=== PATIENT | male | born 1980 | race Caucasian/White ===

== ENCOUNTER 2023-01-12 07:43 | Emergency (ER) | payer BC, SELFPAY ==
[2023-01-12 07:44] VITALS: BP 146/94; PULSE 97; RESP 16; TEMP 36.7; O2SAT 95; BMI 20.9
--- NOTE | 2023-01-12 08:01 | PC.NURSE ---
MONICA GRANADOS at
--- NOTE | 2023-01-12 08:08 | HMH.EDEXTP ---
Discharge Plan Disposition Patient Disposition: Home, Self-Care Condition: Good Prescriptions Prescriptions: New clindamycin HCl [Cleocin HCl] 300 mg capsule 300 mg PO TID 10 Days Qty: 30 0RF Clinical Impressions Clinical Impression: Cellulitis of hand Instructions Patient Instructions: Cellulitis Discharge ED Provider: Jessica Villalobos Extremity Problem HPI General Stated complaint: sore on right hand Time Seen by Provider: 01/12/23 07:50 Mode of Arrival: Ambulatory Source of Information: Patient Limitations: No Limitations History of Present Illness HPI Narrative: Patient is a 42-year-old male who is here secondary to right hand redness and swelling and discomfort. Patient stated that he got bit by something and he has some redness and top of the right hand. Patient is has pain and swelling on the top of the hand. Patient has good sensory intact patient has no fevers or chills. He is able to hold onto things and not dropping things. MD Complaint: extremity pain and extremity swelling Consistency: constant Location: right and upper extremity Severity scale (1-10): 5 Quality: aching, dull and constant Radiation: none Relieving factors: nothing Exacerbating factors: range of motion and palpation Associated symptoms: myalgias and arthralgias Related Data Previous Rx's Medication Instructions Recorded clindamycin HCl 300 mg capsule 300 mg PO TID 10 days #30 caps 01/12/23 (Cleocin HCl) Allergies Allergy/AdvReac Type Severity Reaction Status Date / Time No Known Allergies Allergy Verified 01/12/23 08:06 [facility] Disclaimer: The information contained in this section may have been updated after the patient was seen, as this information can be updated by other users. Social History Smoking Status: Current every day smoker alcohol intake: never current occupational status: employed Travel in the last 8 weeks: Inside the [place] ROS Obtained: Yes All systems reviewed & no additional complaints except as documented Musculoskeletal Musculoskeletal: Reports other (right hand swelling and redness) Physical Exam General General appearance: alert and in no apparent distress Head Head exam: atraumatic, normocephalic and normal inspection Eye Eye exam: Present normal appearance, PERRL and EOMI ENT ENT exam: Present normal exam and normal oropharynx Neck Neck exam: Present normal inspection, full ROM and trachea midline Chest Chest inspection: Present normal inspection and symmetric chest wall rise Respiratory Respiratory exam: Present normal lung sounds bilaterally Cardiovascular Cardiovascular exam: Present regular rate, normal rhythm, normal heart sounds, +S1 and +S2 Abdominal Exam Abdominal exam: Present soft and normal bowel sounds; Absent distention, tenderness, guarding, rebound or rigidity Extremities Exam Extremities exam: Present tenderness (right hand dorsal aspect erythema, swelling and tenderness, normal rom, no abscess) Back Exam Back exam: Present normal inspection and full ROM Neurological Exam Neurological exam: Present oriented X3 Psychiatric Psychiatric exam: Present normal affect and normal mood Skin Skin exam: Present warm, dry, intact and normal color Medical Decision Making Jerry Inquiry Pt receiving controlled substance: No Medical Decision Narrative: Patient is a 42-year-old male who said that he got bit by something on the top of his right hand there is some swelling and redness in that area. No difficulty grabbing and hold onto things. Patient has no fluctuant abscess. No streaking going up to the wrist or forearm. No signs of lymphangitis. Patient is given clindamycin orally and discharged home to follow-up as an outpatient. Critical Care Time Critical Care Time Critical Care Time: No Attestation: On , the high probability of a clinically significant, sudden or life thre
[2023-01-12 08:18] VITALS: BP 138/84; PULSE 98; RESP 16; TEMP 36.7; O2SAT 96
== END 2023-01-12 08:18 | disposition home or self-care (01) ==
LOC: ER 08:14
PROVIDERS: Emergency Provider Emergency Medicine
DX: L03.113 Cellulitis of right upper limb (principal); F17.200 Nicotine dependence, unspecified, uncomplicated
CPT/HCPCS: 99283; 99284

== ENCOUNTER 2024-02-23 15:13 | Emergency (ER) | payer BC, SELFPAY ==
[2024-02-23 15:15] VITALS: BP 130/62; PULSE 98; RESP 17; TEMP 36.9; O2SAT 95; BMI 23.1
--- NOTE | 2024-02-23 15:22 | ED_ITS ---
Discharge Plan Disposition Patient Disposition: Home, Self-Care Condition: Good Prescriptions Prescriptions: New sulfamethoxazole-trimethoprim [Bactrim DS] 800-160 mg tablet 1 tab PO BID 10 Days Qty: 20 0RF No Action clindamycin HCl [Cleocin HCl] 300 mg capsule 300 mg PO TID 10 Days Qty: 30 0RF Referrals Follow up/Referrals: Provider,Referral, MD [Primary Care Provider] - See instructions Activity Restrictions/Add. Instructions Additional Instructions/Restrictions: Please take all antibiotics as prescribed. Please call make a follow-up appointment with your urologist tomorrow. Return to the ER as needed for any worsening signs or symptoms. You have a diarrheal panel pending but we will likely not have results for several hours. Please call to check in the morning or keep updated with your portal Clinical Impressions Clinical Impression: Complicated urinary tract infection Diarrhea Qualifiers: Diarrhea type: presumed infectious Qualified Code(s): R19.7 - Diarrhea, unspecified Discharge ED Provider: Garrison Guerra General Adult HPI <KATY Green - Last Filed: 02/23/24 16:33> General Chief complaint: Urogenital-Female Stated complaint: sent by phy- UTI Time Seen by Provider: 02/23/24 15:16 History of Present Illness HPI narrative: Patient presents for evaluation of possible urinary tract infection. Patient has a history of back trauma several months ago and as a result developed developed a neurogenic bladder for which he had a indwelling Hassan catheter placed along with a leg bag 2 weeks ago prior to discharge from [facility]. Patient also went to his Suboxone clinic today and had a drug test which they reportedly saw blood and possible infection and so they sent him to the emergency department for evaluation. Patient denies chest pain fever chills hemoptysis hematochezia melena vomiting or diarrhea or dysuria but does endorse some nausea. Related Data Previous Rx's Medication Instructions Recorded clindamycin HCl 300 mg capsule 300 mg PO TID 10 days #30 caps 01/12/23 (Cleocin HCl) sulfamethoxazole 800 1 tab PO BID 10 days #20 tabs 02/23/24 mg-trimethoprim 160 mg tablet (Bactrim DS) Allergies Allergy/AdvReac Type Severity Reaction Status Date / Time No Known Allergies Allergy Verified 01/12/23 08:06 PFSH <KATY Green - Last Filed: 02/23/24 16:33> [facility] Disclaimer: The information contained in this section may have been updated after the patient was seen, as this information can be updated by other users. Social History (Updated 01/12/23 @ 08:12 by Jessica Villalobos MD) Smoking Status: Former smoker alcohol intake: never current occupational status: employed Travel in the last 8 weeks: Inside the [place] <KATY Green - Last Filed: 02/23/24 16:33> ROS Obtained: Yes Systems reviewed as appropriate & no additional complaints except as documented Physical Exam <KATY Green - Last Filed: 02/23/24 16:33> General General appearance: alert and in no apparent distress Head Head exam: atraumatic and normal inspection Eye Eye exam: Present normal appearance, PERRL and EOMI ENT ENT exam: Present normal exam, normal oropharynx and mucous membranes moist Neck Neck exam: Present normal inspection, full ROM and trachea midline; Absent lymphadenopathy Chest Chest inspection: Present normal inspection and symmetric chest wall rise Respiratory Respiratory exam: Present normal lung sounds bilaterally; Absent accessory muscle use Cardiovascular Cardiovascular exam: Present regular rate, normal rhythm, normal heart sounds, +S1 and +S2 Abdominal Exam Abdominal exam: Present soft and normal bowel sounds; Absent tenderness, guarding or rebound Extremities Exam Extremities exam: Present normal inspection and full ROM Neurological Exam Neurological exam: Present alert, oriented X3 and CN II-XII intact Psychiatric Psychiatric exam: Present normal affect and normal mood Skin Skin exam: Present warm, dry and normal color Lymphatic Lymphatic Findings: no adenopathy Medical Decision Making <KATY Green - Last Filed: 02/23/24 16:33> Medical Records Medical records reviewed: Yes I reviewed the patient's medical records. Jerry Inquiry Pt receiving controlled substance: No Vital Signs: 02/23/24 15:15 02/23/24 16:00 02/23/24 16:39 Temperature 98.5 F Temperature Source Oral Pulse Rate 87 80 Pulse Rate [Left Radial] 98 H Respiratory Rate 17 Blood Pressure 128/76 150/65 H Blood Pressure [Right Arm] 130/62 Blood Pressure Mean [Right Arm] 84 Blood Pressure Source Blood Pressure Source [Right Arm] Automatic Cuff Blood Pressure Position Blood Pressure Position [Right Arm] Sitting 02 Sat by Pulse Oximetry 95 97 95 Oxygen Delivery Method Room Air 05/28/24 17:05 Temperature 98.1 F Temperature Source Oral Pulse Rate 80 Pulse Rate [Left Radial] Respiratory Rate 18 Blood Pressure 150/65 H Blood Pressure [Right Arm] Blood Pressure Mean [Right Arm] Blood Pressure Source Automatic Cuff Blood Pressure Source [Right Arm] Blood Pressure Position Sitting Blood Pressure Position [Right Arm] 02 Sat by Pulse Oximetry Oxygen Delivery Method Room Air Lab Data Lab results reviewed: Yes I reviewed the patient's lab results. Lab Results 02/23/24 15:40: WBC 10.1, RBC 4.44 L, Hgb 13.0 L, Hct 40.9 L, MCV 92.2, MCH 29.2, MCHC 31.7 L, RDW 14.2, Plt Count 334, MPV 7.3 L, Neut % (Auto) 85.2 H, L ymph % (Auto) 9.1 L, [place] % (Auto) 4.4, Eos % (Auto) 0.8, Baso % (Auto) 0.4, N eut # (Auto) 8.6 H, Lymph # (Auto) 0.9, [place] # (Auto) 0.5, Eos # (Auto) 0.1, Baso # (Auto) 0.0, Total Counted 100, Neutrophils % (Manual) 84 H, Lymphocytes % (Manual) 12, Monocytes % (Manual) 3, Eosinophils % (Manual) 1, Platelet Estimate Normal, Hypochromasia 1+, Microcytosis 1+, Sodium 140, Potassium 4.4, Chloride 103, Carbon Dioxide 28, Anion Gap 13.4, BUN 14, Creatinine 0.80, Estimated Creat Clear 134, Estimated GFR 106, Est GFR ( Amer) 128, Glucose 111 H, Calcium 10.0, Total Bilirubin 0.6, Direct Bilirubin 0.2, AST 29, ALT 27, Alkaline Phosphatase 116, Total Creatine Kinase 117, Total Protein 7.9, Albumin 4.4, G lobulin 3.5 H, Albumin/Globulin Ratio 1.3, Urine Color Dark yellow, Urine Appearance Cloudy, Urine pH 6.0, Ur Specific [place] >= 1.030, Urine Protein 2+, Urine Glucose (UA) Negative, Urine Ketones Trace, Urine Blood 3+, Urine Nitrate Positive, Urine Bilirubin Negative, Urine Urobilinogen 1.0, Ur Leukocyte Esterase 2+ A, Urine RBC 10-20, Urine WBC 20-50, Ur Squamous Epith Cells None, Urine Bacteria 2+ 02/23/24 15:40 02/23/24 15:40 Orders (Tests/Meds): ED MEDICATIONS Discontinued Medications Generic Name Dose Route Start Last Admin Trade Name Sydnee PRN Reason Stop Dose Admin Acetaminophen 1,000 mg 02/23/24 15:27 02/23/24 15:58 Acetaminophen 1,000mg/100ml Vial IV 02/23/24 15:28 1,000 mg ONCE ONE Administration Lactated Ringer's 1,000 mls @ 999 mls/hr 02/23/24 15:28 02/23/24 15:48 Lactated Ringer's 1000 Ml Bag IV 02/23/24 16:28 999 mls/hr .Q1H1M ONE Administration Ketorolac Tromethamine 15 mg 02/23/24 15:27 02/23/24 15:48 Ketorolac 30mg/Ml Vial IV 02/23/24 15:28 15 mg ONCE ONE Administration Ondansetron HCl 4 mg 02/23/24 15:28 02/23/24 15:48 Ondansetron 4mg/2ml Vial IV 02/23/24 15:29 4 mg ONCE ONE Administration Trimethoprim/Sulfamethoxazole 1 each 02/23/24 16:20 02/23/24 16:26 Sulfa/Trimethoprim 1 Tablet PO 02/23/24 16:21 1 each ONCE ONE Administration ORDERS Category Date Time Status Bilirubin,Direct Stat Lab 02/23/24 15:40 Completed CBC w/Auto Diff [Complete Blood Count Auto Diff] Stat Lab 02/23/24 15:40 Completed CK [Creatine Kinase] Stat Lab 02/23/24 15:40 Completed CMP [Comprehensive Metabolic Panel] Stat Lab 02/23/24 15:40 Completed Diarrhea 6-11 Panel, Cdiff PCR Stat Lab 02/23/24 16:30 Received UA [Urinalysis and Microscopic] Stat Lab 02/23/24 15:40 Completed Urine Culture Routine Micro 02/23/24 15:27 Received Medical Decision Narrative: In summary patient is a 43-year-old male who presents to the emergency department for evaluation of possible urinary tract infection. Patient is hemodynamically stable upon arrival, afebrile. Physical exam is nonfocal and unremarkable including no suprapubic tenderness no bladder fullness although he does have some rust colored sediment in his Hassan bag. Differential diagnosis includes hematuria versus complicated urinary tract infection versus Hassan trauma etc. Initial workup will be conducted with urinalysis CBC CMP. Initial interventions include crystalloid bolus Toradol Tylenol. Initial workup reviewed by me shows that he does not fact have bacturia and leukocytes on microscopic exam. Upon repeat evaluation patient report improvement in his symptoms after Hassan catheter change and medication administration. Given this patient is appropriate for discharge with close follow-up with his urologist, pain management, and patient given a prescription for Bactrim with a first dose given here. <Garrison Guerra MD - Last Filed: 02/23/24 20:18> Vital Signs: 02/23/24 15:15 02/23/24 16:00 02/23/24 16:39 Temperature 98.5 F Temperature Source Oral Pulse Rate 87 80 Pulse Rate [Left Radial] 98 H Respiratory Rate 17 Blood Pressure 128/76 150/65 H Blood Pressure [Right Arm] 130/62 Blood Pressure Mean [Right Arm] 84 Blood Pressure Source Blood Pressure Source [Right Arm] Automatic Cuff Blood Pressure Position Blood Pressure Position [Right Arm] Sitting 02 Sat by Pulse Oximetry 95 97 95 Oxygen Delivery Method Room Air 02/23/24 17:05 Temperature 98.1 F Temperature Source Oral Pulse Rate 80 Pulse Rate [Left Radial] Respiratory Rate 18 Blood Pressure 150/65 H Blood Pressure [Right Arm] Blood Pressure Mean [Right Arm] Blood Pressure Source Automatic Cuff Blood Pressure Source [Right Arm] Blood Pressure Position Sitting Blood Pressure Position [Right Arm] 02 Sat by Pulse Oximetry Oxygen Delivery Method Room Air Lab Data Lab Results 02/23/24 15:40: WBC 10.1, RBC 4.44 L, Hgb 13.0 L, Hct 40.9 L, MCV 92.2, MCH 29.2, MCHC 31.7 L, RDW 14.2, Plt Count 334, MPV 7.3 L, Neut % (Auto) 85.2 H, L ymph % (Auto) 9.1 L, [place] % (Auto) 4.4, Eos % (Auto) 0.8, Baso % (Auto) 0.4, N eut # (Auto) 8.6 H, Lymph # (Auto) 0.9, [place] # (Auto) 0.5, Eos # (Auto) 0.1, Baso # (Auto) 0.0, Total Counted 100, Neutrophils % (Manual) 84 H, Lymphocytes % (Manual) 12, Monocytes % (Manual) 3, Eosinophils % (Manual) 1, Platelet Estimate Normal, Hypochromasia 1+, Microcytosis 1+, Sodium 140, Potassium 4.4, Chloride 103, Carbon Dioxide 28, Anion Gap 13.4, BUN 14, Creatinine 0.80, Estimated Creat Clear 134, Estimated GFR 106, Est GFR ( Amer) 128, Glucose 111 H, Calcium 10.0, Total Bilirubin 0.6, Direct Bilirubin 0.2, AST 29, ALT 27, Alkaline Phosphatase 116, Total Creatine Kinase 117, Total Protein 7.9, Albumin 4.4, G lobulin 3.5 H, Albumin/Globulin Ratio 1.3, Urine Color Dark yellow, Urine Appearance Cloudy, Urine pH 6.0, Ur Specific [place] >= 1.030, Urine Protein 2+, Urine Glucose (UA) Negative, Urine Ketones Trace, Urine Blood 3+, Urine Nitrate Positive, Urine Bilirubin Negative, Urine Urobilinogen 1.0, Ur Leukocyte Esterase 2+ A, Urine RBC 10-20, Urine WBC 20-50, Ur Squamous Epith Cells None, Urine Bacteria 2+ Orders (Tests/Meds): ED MEDICATIONS Discontinued Medications Generic Name Dose Route Start Last Admin Trade Name Sydnee PRN Reason Stop Dose Admin Acetaminophen 1,000 mg 02/23/24 15:27 02/23/24 15:58 Acetaminophen 1,000mg/100ml Vial IV 02/23/24 15:28 1,000 mg ONCE ONE Administration Lactated Ringer's 1,000 mls @ 999 mls/hr 02/23/24 15:28 02/23/24 15:48 Lactated Ringer's 1000 Ml Bag IV 02/23/24 16:28 999 mls/hr .Q1H1M ONE Administration Ketorolac Tromethamine 15 mg 02/23/24 15:27 02/23/24 15:48 Ketorolac 30mg/Ml Vial IV 02/23/24 15:28 15 mg ONCE ONE Administration Ondansetron HCl 4 mg 02/23/24 15:28 02/23/24 15:48 Ondansetron 4mg/2ml Vial IV 02/23/24 15:29 4 mg ONCE ONE Administration Trimethoprim/Sulfamethoxazole 1 each 02/23/24 16:20 02/23/24 16:26 Sulfa/Trimethoprim 1 Tablet PO 02/23/24 16:21 1 each ONCE ONE Administration ORDERS Category Date Time Status Bilirubin,Direct Stat Lab 02/23/24 15:40 Completed CBC w/Auto Diff [Complete Blood Count Auto Diff] Stat Lab 02/23/24 15:40 Completed CK [Creatine Kinase] Stat Lab 02/23/24 15:40 Completed CMP [Comprehensive Metabolic Panel] Stat Lab 02/23/24 15:40 Completed Diarrhea 6-11 Panel, Cdiff PCR Stat Lab 02/23/24 16:30 Received UA [Urinalysis and Microscopic] Stat Lab 02/23/24 15:40 Completed Urine Culture Routine Micro 02/23/24 15:27 Received Medical Decision Narrative: In summary patient is a 43-year-old male who presents to the emergency department for evaluation of possible urinary tract infection. Patient is hemodynamically stable upon arrival, afebrile. Physical exam is nonfocal and unremarkable including no suprapubic tenderness no bladder fullness although he does have some rust colored sediment in his Hassan bag. Differential diagnosis includes hematuria versus complicated urinary tract infection versus Hassan trauma etc. Initial workup will be conducted with urinalysis CBC CMP. Initial interventions include crystalloid bolus Toradol Tylenol. Initial workup reviewed by me shows that he does not fact have bacturia and leukocytes on microscopic exam. Upon repeat evaluation patient report improvement in his symptoms after Hassan catheter change and medication administration. Given this patient is appropriate for discharge with close follow-up with his urologist, pain management, and patient given a prescription for Bactrim with a first dose given here. I was consulted by the PATIENCE, and we discussed the complexity of the problems being addressed. I approved the treatment and management plan for this patient?s care in the Emergency Department, thus performing a substantive portion of the medical decision making. Garrison Guerra MD Critical Care <KATY Green - Last Filed: 02/23/24 16:33> Critical Care Time Critical Care Time: No
[2024-02-23 15:44] LABS: Microscopic, Urine URINE MICROSCOPIC (MICROSCOPIC)
[2024-02-23 15:48] LABS: Basophils % 0.4 % (0.1-2.0); Eosinophils # 0.1 K/mm3 (0.0-0.4); Eosinophils % 0.8 % (0.1-12.0); Hematocrit 40.9 % (42.0-52.0); Lymphocytes # 0.9 K/mm3 (0.7-4.5); Lymphocytes % 9.1 % (10-50); Mean Corpuscular HGB Conc 31.7 g/dL (31.8-35.4); Mean Corpuscular Hemoglobin 29.2 pg (27.0-31.2); Mean Corpuscular Volume 92.2 fl (80-94); Mean Platelet Volume 7.3 fl (7.4-10.4); Monocytes # 0.5 K/mm3 (0.1-1.0); Monocytes % 4.4 % (1.7-9.3); Neutrophils # 8.6 K/mm3 (1.8-7.8); Neutrophils % 85.2 % (37.0-80.0); Platelet Count 334 K/mm3 (142-424); Red Blood Count 4.44 M/mm3 (4.60-6.20); Red Cell Distribution Width 14.2 % (11.5-17.5); White Blood Count 10.1 K/mm3 (4.8-10.8)
[2024-02-23] MEDS: KETOROLAC 30MG/ML VIAL 15 MG IV (15:48)
[2024-02-23] MEDS: ONDANSETRON 4MG/2ML VIAL 4 MG IV (15:48)
[2024-02-23] MEDS: LACTATED RINGERS 1000ML 1,000 ML 999 ML IV (15:48)
[2024-02-23 15:50] LABS: MANUAL DIFFERENTIAL MANUAL DIFFERENTIAL (MANUAL DIFF)
[2024-02-23] MEDS: ACETAMINOPHEN 1,000MG/100ML VIAL 1000 MG IV (15:58)
[2024-02-23 16:00] VITALS: BP 128/76; PULSE 87; O2SAT 97
[2024-02-23 16:01] LABS: Appearance,Urine CLOUDY (Clear); Bilirubin,Urine Negative (Negative); Blood, Urine 3+ (Negative); Color,Urine DARK YELLOW (Yellow); Glucose,Urine (UA) Negative (Negative); Ketones,Urine TRACE (Negative); Leukocyte Esterase,Urine 2+ (Negative); Nitrate,Urine POSITIVE (Negative); Protein,Urine 2+ (Negative); Specific Gravity, Urine >= 1.030 (1.005-1.030)
--- NOTE | 2024-02-23 16:07 | PC.NURSE ---
spoke with [facility] who stated that they don't feel comfortable continuing to give him his suboxone while he is taking oxycodone and referred him to their main provider Dr. Evans who will be contacting him in the morning for an appointment.
[2024-02-23 16:10] LABS: Chloride 103 mmol/L (98-107); Sodium 140 mmol/L (136-145)
[2024-02-23 16:11] LABS: Potassium 4.4 mmoL/L (3.5-5.1)
[2024-02-23 16:13] LABS: Alanine Aminotransferase 27 U/L (12-78); Albumin Level 4.4 g/dl (3.5-5.0); Albumin/Globulin Ratio 1.3 (1.1-1.8); Alkaline Phosphatase 116 U/L (38-126); Anion Gap 13.4 mEq/L (5-15); Aspartate Amino Transferase 29 U/L (17-59); Bilirubin,Total 0.6 mg/dl (0.2-1.3); Blood Urea Nitrogen 14 mg/dl (9-20); Carbon Dioxide 28 mmol/L (22.0-30.0); Creatine Kinase 117 U/L (55-170); Creatinine Clearance Estimated 134 mL/min (50-200); Estimated Glomerular Filt Rate 106 ml/min (>60); GFR (African American) 128 ML/MIN (>60); Globulin 3.5 g/dL (1.3-3.2); Glucose 111 mg/dl (74-100); Total Protein,Serum 7.9 g/dl (6.3-8.2)
[2024-02-23 16:14] LABS: Bilirubin,Direct 0.2 mg/dl (0.0-0.4)
[2024-02-23 16:18] LABS: Bacteria,Urine 2+ /lpf; Eosinophils % 1 % (0-3); Lymphocytes % 12 % (10-50); Monocytes % 3 % (2-9); Neutrophils % 84 % (42-76); Total Cells Counted 100; WBC,Urine 20-50 #/hpf (0-3)
[2024-02-23 16:19] LABS: Platelet Estimate Normal
[2024-02-23 16:20] LABS: Hypochromasia 1+; Microcytosis 1+
[2024-02-23] MEDS: SULFA/TRIMETHOPRIM 1 TABLET 1 EACH PO (16:26)
[2024-02-23 16:39] VITALS: BP 150/65; PULSE 80; O2SAT 95
[2024-02-23 16:40] LABS: Campylobacter Not Detected (NotDetected); Clostridium Difficile A/B, PCR Not Detected (NotDetected); Cryptosporidium Not Detected (NotDetected); Enteroaggregative E coli Not Detected (NotDetected); Enteropathogenic E coli Not Detected (NotDetected); Enterotoxigenic E coli Not Detected (NotDetected); Plesimonas Shigalloides, PCR Not Detected (NotDetected); Salmonella, PCR Not Detected (NotDetected); Shiga-like toxin E coli Not Detected (NotDetected); Shigella Enterovasive E coli Not Detected (NotDetected); Vibrio Cholerae Not Detected (NotDetected); Vibrio, PCR Not Detected (NotDetected); Yersinia Entercolitica, PCR Not Detected (NotDetected)
[2024-02-23 16:41] LABS: Adenovirus F 40/41, stool Not Detected (NotDetected); Astrovirus Not Detected (NotDetected); Cyclospora Cayetanesis Not Detected (NotDetected); Entamoeba histolytica Not Detected (NotDetected); Giardia lamblia Not Detected (NotDetected); Norovirus Not Detected (NotDetected); Rotavirus A Not Detected (NotDetected); Sapovirus Not Detected (NotDetected)
[2024-02-23 17:05] VITALS: BP 150/65; PULSE 80; RESP 18; TEMP 36.7; O2SAT 95
--- NOTE | 2024-02-24 10:27 | PC.NURSE ---
urine culture discussed with , pt dc with yeyo thorpe at this time pending the final results
--- NOTE | 2024-02-25 08:03 | PC.NURSE ---
final urine cultures susceptible for bactrim.
== END 2024-02-23 17:05 | disposition home or self-care (01) ==
PROVIDERS: Physician Assistant; Emergency Provider Emergency Medicine
DX: N39.0 Urinary tract infection, site not specified (principal); B96.29 Other Escherichia coli [E. coli] as the cause of diseases classified elsewhere; R31.9 Hematuria, unspecified; R19.7 Diarrhea, unspecified
CPT/HCPCS: 51702; 80053; 81001; 82248; 82550; 85007; 85025; 87086; 87088; 87186; 87506; 96361; 96374; 96375; 99284; J0131; J2405; J7120

== ENCOUNTER 2024-03-14 10:10 | Emergency (ER) | payer BC, SELFPAY ==
[2024-03-14 10:11] VITALS: BP 132/83; PULSE 69; RESP 19; TEMP 36.6; O2SAT 98; BMI 19.8
--- NOTE | 2024-03-14 10:16 | PC.NURSE ---
DR DENNY AT BEDSIDE
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
--- NOTE | 2024-03-14 10:30 | PC.NURSE ---
PT ASSISTED TO BR TO GET ATTENDS CHANGED
[2024-03-14 10:33] LABS: Basophils # 0.1 K/mm3 (0-0.2); Basophils % 1.1 % (0.1-2.0); Eosinophils # 0.1 K/mm3 (0.0-0.4); Eosinophils % 1.2 % (0.1-12.0); Hematocrit 45.7 % (42.0-52.0); Hemoglobin 14.7 g/dL (14.1-18.0); Lymphocytes # 1.3 K/mm3 (0.7-4.5); Lymphocytes % 27.6 % (10-50); Mean Corpuscular Hemoglobin 28.7 pg (27.0-31.2); Mean Corpuscular Volume 89.7 fl (80-94); Monocytes # 0.2 K/mm3 (0.1-1.0); Monocytes % 4.9 % (1.7-9.3); Neutrophils % 65.1 % (37.0-80.0); Platelet Count 444 K/mm3 (142-424); Red Cell Distribution Width 13.8 % (11.5-17.5); White Blood Count 4.6 K/mm3 (4.8-10.8)
[2024-03-14 10:37] LABS: Chloride 104 mmol/L (98-107); Potassium 3.5 mmoL/L (3.5-5.1); Sodium 140 mmol/L (136-145)
[2024-03-14 10:39] LABS: Alanine Aminotransferase 29 U/L (12-78); Aspartate Amino Transferase 30 U/L (17-59); Blood Urea Nitrogen 15 mg/dl (9-20); Estimated Glomerular Filt Rate 82 ml/min (>60); GFR (African American) 99 ML/MIN (>60)
[2024-03-14 10:40] LABS: Albumin Level 4.5 g/dl (3.5-5.0); Albumin/Globulin Ratio 1.3 (1.1-1.8); Alkaline Phosphatase 114 U/L (38-126); Anion Gap 12.5 mEq/L (5-15); Bilirubin,Total 0.5 mg/dl (0.2-1.3); Calcium 9.8 mg/dl (8.4-10.2); Carbon Dioxide 27 mmol/L (22.0-30.0); Globulin 3.6 g/dL (1.3-3.2); Glucose 124 mg/dl (74-100); Lipase 26 U/L (23-300); Total Protein,Serum 8.1 g/dl (6.3-8.2)
[2024-03-14] MEDS: ONDANSETRON 4MG/2ML VIAL 4 MG IV (10:55)
[2024-03-14] MEDS: BUPRENORPHINE/NALOXONE 8MG/2MG ODT 1 EACH SL (10:55)
[2024-03-14] MEDS: LACTATED RINGERS 1000ML 1,000 ML 999 ML IV (10:55)
[2024-03-14] MEDS: GABAPENTIN 800MG TABLET 800 MG PO (11:23)
--- NOTE | 2024-03-14 12:00 | PC.NURSE ---
PT DECLINED RODRIGUEZ CHANGE, DR DENNY NOTIFIED. UA COLLECTED FROM CURRENT RODRIGUEZ
[2024-03-14 12:08] LABS: Microscopic, Urine URINE MICROSCOPIC (MICROSCOPIC)
[2024-03-14 12:16] LABS: Appearance,Urine CLEAR (Clear); Blood, Urine TRACE-I (Negative); Color,Urine YELLOW (Yellow); Glucose,Urine (UA) Negative (Negative); Ketones,Urine TRACE (Negative); Leukocyte Esterase,Urine 2+ (Negative); Nitrate,Urine POSITIVE (Negative); Protein,Urine 1+ (Negative); Specific Gravity, Urine 1.025 (1.005-1.030); Urobilinogen,Urine 0.2 EU/dl (0.2)
[2024-03-14 12:36] LABS: Bacteria,Urine 3+ /lpf; Bilirubin,Urine 1+ (Negative); Calcium Oxalate Crystals,Urine 2+ /lpf; WBC,Urine 50-100 #/hpf (0-3)
--- NOTE | 2024-03-14 13:21 | PC.NURSE ---
DR DENNY AT BEDSIDE TO UPDATE PT
[2024-03-14] MEDS: levoFLOXacin 750 MG TABLET PO (13:26)
--- NOTE | 2024-03-14 13:27 | PC.NURSE ---
I rounded on the pt, no new complaints at this time. pt is resting and using his cell. vss.
[2024-03-14 13:30] VITALS: BP 109/74; PULSE 60; RESP 17; TEMP 37.1; O2SAT 98
--- NOTE | 2024-03-15 09:22 | PC.NURSE ---
discussed urine results with , pt dc with simón. NTD
== END 2024-03-14 13:43 | disposition home or self-care (01) ==
PROVIDERS: Emergency Provider Emergency Medicine
DX: T83.511A Infection and inflammatory reaction due to indwelling urethral catheter, initial encounter (principal); N39.0 Urinary tract infection, site not specified; B96.1 Klebsiella pneumoniae [K. pneumoniae] as the cause of diseases classified elsewhere; R11.2 Nausea with vomiting, unspecified; F17.210 Nicotine dependence, cigarettes, uncomplicated; R26.2 Difficulty in walking, not elsewhere classified; Z76.0 Encounter for issue of repeat prescription; Z96.0 Presence of urogenital implants
CPT/HCPCS: 80053; 81001; 83690; 85025; 87086; 87088; 87186; 96374; 99284; J0574; J2405; J7120

== ENCOUNTER 2024-04-28 12:31 | Emergency (ER) | payer BC, SELFPAY ==
[2024-04-28 12:33] VITALS: BP 114/69; PULSE 74; RESP 18; TEMP 36.6; O2SAT 95; BMI 23.7
[2024-04-28] MEDS: ONDANSETRON 4MG ODT 4 MG SL (12:52)
[2024-04-28 13:00] VITALS: BP 120/61; PULSE 71; O2SAT 96
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
--- NOTE | 2024-04-28 13:10 | PC.NURSE ---
attempted to get urine from pt home catheter, no success at this time, pt given something to drink
[2024-04-28 13:31] VITALS: BP 122/73; PULSE 76; O2SAT 98
[2024-04-28 14:00] VITALS: BP 124/72; PULSE 76; O2SAT 98
[2024-04-28 14:12] LABS: Microscopic, Urine URINE MICROSCOPIC (MICROSCOPIC)
[2024-04-28 14:15] LABS: Appearance,Urine SL CLOUDY (Clear); Blood, Urine 3+ (Negative); Color,Urine ORANGE (Yellow); Glucose,Urine (UA) 1+ (Negative); Ketones,Urine TRACE (Negative); Leukocyte Esterase,Urine 3+ (Negative); Nitrate,Urine POSITIVE (Negative); Protein,Urine 2+ (Negative); Specific Gravity, Urine 1.025 (1.005-1.030); Urobilinogen,Urine >=8.0 EU/dl (0.2)
[2024-04-28 14:24] LABS: Bacteria,Urine Trace /lpf; Bilirubin,Urine 1+ (Negative); RBC,Urine 20-50 #/hpf (0-3); Squamous Epithelial Cell,Urine Occasional #/hpf (0-5); Yeast,Urine Occasional /lpf
[2024-04-28] MEDS: levoFLOXacin 750 MG TABLET PO (14:55)
[2024-04-28 14:58] VITALS: BP 124/72; PULSE 76; RESP 16; TEMP 36.6; O2SAT 98
== END 2024-04-28 14:59 | disposition home or self-care (01) ==
PROVIDERS: Emergency Provider Emergency Medicine; PCP Family Medicine
DX: T83.511A Infection and inflammatory reaction due to indwelling urethral catheter, initial encounter (principal); N39.0 Urinary tract infection, site not specified; R11.0 Nausea
CPT/HCPCS: 81001; 87077; 87086; 87088; 99283; Q0162

== ENCOUNTER 2024-05-02 16:24 | Outpatient (CLI) | payer BC, SELFPAY | END 2024-05-02 23:59 | disposition home or self-care (01) | LOC: LAB.DROPOF 16:24 | PROVIDERS: PCP Urology; Visit Provider Urology | DX: N39.0 Urinary tract infection, site not specified (principal) | CPT/HCPCS: 87086 ==

== ENCOUNTER 2024-05-07 12:20 | Emergency (ER) | payer BC, SELFPAY ==
[2024-05-07 12:22] VITALS: BP 140/90; PULSE 80; RESP 18; TEMP 36.8; O2SAT 97; BMI 23.7
--- NOTE | 2024-05-07 12:28 | PC.NURSE ---
DR MONTERO AT BEDSIDE
--- NOTE | 2024-05-07 12:30 | PC.NURSE ---
Bladder scan shows 875ml. Dr. Thomas at bedside with u/s and aware of bladder scan results.
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
[2024-05-07 12:50] VITALS: BP 136/76; PULSE 90; O2SAT 100
--- NOTE | 2024-05-07 12:53 | PC.NURSE ---
irrigated quintero cath with 200ml of sterile water. Quintero is slowly draining back into back. output removed thus far is 200ml. Will recheck quintero bag shortly to ensure bladder continues to fully decompress
[2024-05-07 13:01] VITALS: BP 128/79; PULSE 71; O2SAT 99
[2024-05-07 13:11] VITALS: BP 117/82; PULSE 73; O2SAT 99
[2024-05-07 13:27] VITALS: BP 129/69; PULSE 90; RESP 20; TEMP 36.7; O2SAT 99
== END 2024-05-07 13:32 | disposition home or self-care (01) ==
PROVIDERS: Emergency Provider Student in an Organized Health Care Education/Training Program; PCP Family Medicine
DX: T83.091A Other mechanical complication of indwelling urethral catheter, initial encounter (principal)
CPT/HCPCS: 99284

== ENCOUNTER 2024-05-20 11:25 | Emergency (ER) | payer BC, SELFPAY ==
[2024-05-20 11:44] VITALS: BP 141/82; PULSE 83; RESP 20; TEMP 37.1; O2SAT 98; BMI 23.7
--- NOTE | 2024-05-20 11:46 | HMH.EDGENADL ---
Discharge Plan Disposition Patient Disposition: Home, Self-Care Prescriptions Prescriptions: No Action buprenorphine-naloxone 8-2 mg tablet, sublingual 1 tab sublingual DAILY lidocaine [Lidocaine Pain Relief] 4 % adhesive patch,medicated topical polyethylene glycol 3350 17 gram/dose powder 17 g PO famotidine 20 mg tablet 20 mg PO BID Qty: 60 3RF fluoxetine 10 mg capsule 10 mg PO DAILY Qty: 30 3RF cholecalciferol (vitamin D3) 50 mcg (2,000 unit) capsule 50 mcg PO DAILY Qty: 90 3RF levofloxacin 750 mg tablet 750 mg PO DAILY 10 Days Qty: 10 0RF tamsulosin [Flomax] 0.4 mg capsule 0.4 mg PO DAILY Qty: 30 3RF methocarbamol 500 mg tablet 500 mg PO QID Qty: 120 3RF sennosides-docusate sodium [Stool Softener-Stimulant Laxat] 8.6-50 mg tablet 1 tab-cap PO DAILY 30 Days Qty: 30 0RF nitrofurantoin monohyd/m-cryst [Macrobid] 100 mg capsule 100 mg PO Q12H 10 Days Qty: 20 2RF Rx Instructions: must administer with a meal/food; start after levaquin completion gabapentin 600 mg tablet 600 mg PO TID Qty: 90 3RF ondansetron 4 mg tablet,disintegrating 4 mg PO Q6H PRN (Reason: nausea and vomiting) Qty: 10 0RF Referrals Follow up/Referrals: Dakotah Perales MD [Primary Care Provider] - See instructions Activity Restrictions/Add. Instructions Additional Instructions/Restrictions: Follow-up with primary care doctor regarding urine culture. Please return emerged part with any new, concerning, or worsening symptoms. Clinical Impressions Clinical Impression: Blocked urinary catheter Qualifiers: Encounter type: initial encounter Qualified Code(s): T83.098A - Other mechanical complication of other urinary catheter, initial encounter Print Language Print Language: Yi Discharge ED Provider: Riky Mullins General Adult HPI General Chief complaint: Urogenital-Male Stated complaint: Catheter not draining Time Seen by Provider: 05/20/24 11:42 Source of Information: Patient History of Present Illness HPI narrative: This is a 43-year-old man with a past medical history of spinal cord injury 6 months ago complicated by neurogenic bladder requiring Hassan placement. States that every so often he will have his Hassan clogged and need to come into the emergency department to get it flushed. States that he woke up this morning with suprapubic abdominal pain and no urine in his Hassan bag. Believes that it is clogged again. Denies any other symptoms Related Data Home Medications ?Medication ?Instructions ?Recorded ?Confirmed buprenorphine 8 mg-naloxone 2 mg 1 tab sublingual DAILY 03/15/24 05/02/24 sublingual tablet lidocaine 4 % topical patch patch topical 03/15/24 05/02/24 (Lidocaine Pain Relief) polyethylene glycol 3350 17 17 g PO 03/15/24 05/02/24 gram/dose oral powder Previous Rx's ?Medication ?Instructions ?Recorded famotidine 20 mg tablet 20 mg PO BID stomach #60 tabs 03/15/24 fluoxetine 10 mg capsule 10 mg PO DAILY #30 caps 03/15/24 cholecalciferol (vitamin D3) 50 50 mcg PO DAILY #90 caps 03/16/24 mcg (2,000 unit) capsule methocarbamol 500 mg tablet 500 mg PO QID muscle relaxer #120 03/28/24 tabs ondansetron 4 mg disintegrating 4 mg PO Q6H PRN nausea and 04/28/24 tablet vomiting #10 tabs levofloxacin 750 mg tablet 750 mg PO DAILY 10 days #10 tabs 05/02/24 tamsulosin 0.4 mg capsule (Flomax) 0.4 mg PO DAILY #30 caps 05/02/24 gabapentin 600 mg tablet 600 mg PO TID chronic pain #90 tabs 05/17/24 nitrofurantoin 100 mg PO Q12H urine infection 05/17/24 monohydrate/macrocrystals 100 mg prevention 10 days #20 caps capsule (Macrobid) sennosides 8.6 mg-docusate sodium 1 tab-cap PO DAILY 30 days #30 tabs 05/17/24 50 mg tablet (Stool Softener-Stimulant Laxative) Allergies Allergy/AdvReac Type Severity Reaction Status Date / Time No Known Allergies Allergy Verified 05/02/24 14:09 [facility] Disclaimer: The information con
[2024-05-20 12:01] VITALS: BP 120/71; PULSE 83; O2SAT 100
[2024-05-20 12:02] LABS: Microscopic, Urine URINE MICROSCOPIC (MICROSCOPIC)
[2024-05-20 12:07] LABS: Appearance,Urine CLEAR (Clear); Bilirubin,Urine Negative (Negative); Blood, Urine 1+ (Negative); Color,Urine YELLOW (Yellow); Glucose,Urine (UA) Negative (Negative); Ketones,Urine Negative (Negative); Leukocyte Esterase,Urine 3+ (Negative); Nitrate,Urine Negative (Negative); Protein,Urine Negative (Negative); Specific Gravity, Urine 1.015 (1.005-1.030); Urobilinogen,Urine 0.2 EU/dl (0.2)
--- NOTE | 2024-05-20 12:30 | PC.NURSE ---
PAGING DR SPIVEY
[2024-05-20 12:31] LABS: Bacteria,Urine Trace /lpf; Calcium Oxalate Crystals,Urine Trace /lpf; Squamous Epithelial Cell,Urine Occasional #/hpf (0-5); Yeast,Urine 3+ /lpf
[2024-05-20 13:13] VITALS: BP 120/75; PULSE 80; RESP 18; TEMP 37.1; O2SAT 98
--- NOTE | 2024-05-28 08:42 | PC.NURSE ---
Urine culture reviewed with , pt dc with bactrim
== END 2024-05-20 13:17 | disposition home or self-care (01) ==
PROVIDERS: Emergency Provider Student in an Organized Health Care Education/Training Program; PCP Family Medicine
DX: T83.098A Other mechanical complication of other urinary catheter, initial encounter (principal); N31.9 Neuromuscular dysfunction of bladder, unspecified
CPT/HCPCS: 81001; 87086; 87088; 99283; 99284

== ENCOUNTER 2024-05-21 06:00 | Emergency (ER) | payer BC, SELFPAY ==
[2024-05-21 06:01] VITALS: BP 138/78; PULSE 80; RESP 18; TEMP 36.8; O2SAT 98; BMI 23.7
--- NOTE | 2024-05-21 06:11 | HMH.EDGENADL ---
Discharge Plan Disposition Patient Disposition: Home, Self-Care Prescriptions Prescriptions: No Action buprenorphine-naloxone 8-2 mg tablet, sublingual 1 tab sublingual DAILY lidocaine [Lidocaine Pain Relief] 4 % adhesive patch,medicated topical polyethylene glycol 3350 17 gram/dose powder 17 g PO famotidine 20 mg tablet 20 mg PO BID Qty: 60 3RF fluoxetine 10 mg capsule 10 mg PO DAILY Qty: 30 3RF cholecalciferol (vitamin D3) 50 mcg (2,000 unit) capsule 50 mcg PO DAILY Qty: 90 3RF levofloxacin 750 mg tablet 750 mg PO DAILY 10 Days Qty: 10 0RF tamsulosin [Flomax] 0.4 mg capsule 0.4 mg PO DAILY Qty: 30 3RF methocarbamol 500 mg tablet 500 mg PO QID Qty: 120 3RF sennosides-docusate sodium [Stool Softener-Stimulant Laxat] 8.6-50 mg tablet 1 tab-cap PO DAILY 30 Days Qty: 30 0RF nitrofurantoin monohyd/m-cryst [Macrobid] 100 mg capsule 100 mg PO Q12H 10 Days Qty: 20 2RF Rx Instructions: must administer with a meal/food; start after levaquin completion gabapentin 600 mg tablet 600 mg PO TID Qty: 90 3RF ondansetron 4 mg tablet,disintegrating 4 mg PO Q6H PRN (Reason: nausea and vomiting) Qty: 10 0RF Referrals Follow up/Referrals: Dakotah Perales MD [Primary Care Provider] - See instructions Activity Restrictions/Add. Instructions Additional Instructions/Restrictions: Call Dr. Cavanaugh's office later this morning to discuss your recent ED visits. His office may be able to see you sooner. If you experience additional clogging of your quintero catheter, it will likely need to be exchanged. Please return to ED if your symptoms worsen, change in location, change in severity, new symptoms develop or if you become concerned for your health. Clinical Impressions Clinical Impression: Blocked urinary catheter Qualifiers: Encounter type: initial encounter Qualified Code(s): T83.098A - Other mechanical complication of other urinary catheter, initial encounter Instructions Patient Instructions: How to Care for Your Quintero Catheter -- Male, DI for Urinary Tract Infection (UTI) Print Language Print Language: Kenyan Discharge ED Provider: Diamond Vallecillo General Adult HPI General Chief complaint: Urogenital-Male Stated complaint: quintero bag clogged Time Seen by Provider: 05/21/24 06:06 History of Present Illness HPI narrative: Patient is a 43-year-old male presenting with Quintero catheter complication. Patient has had this catheter in place for approximately 6 months following an injury and spinal surgery. Patient states he was seen yesterday due to his Quintero catheter not draining. Patient's catheter was able to be flushed with resolution of complication and patient was discharged home. He states the catheter was draining well until he woke up this morning. This is similar to what happened yesterday where the patient woke up and it had stopped draining while he was asleep. He complains of suprapubic tenderness and fullness. Related Data Home Medications ?Medication ?Instructions ?Recorded ?Confirmed buprenorphine 8 mg-naloxone 2 mg 1 tab sublingual DAILY 03/15/24 05/02/24 sublingual tablet lidocaine 4 % topical patch patch topical 03/15/24 05/02/24 (Lidocaine Pain Relief) polyethylene glycol 3350 17 17 g PO 03/15/24 05/02/24 gram/dose oral powder Previous Rx's ?Medication ?Instructions ?Recorded famotidine 20 mg tablet 20 mg PO BID stomach #60 tabs 03/15/24 fluoxetine 10 mg capsule 10 mg PO DAILY #30 caps 03/15/24 cholecalciferol (vitamin D3) 50 50 mcg PO DAILY #90 caps 03/16/24 mcg (2,000 unit) capsule methocarbamol 500 mg tablet 500 mg PO QID muscle relaxer #120 03/28/24 tabs ondansetron 4 mg disintegrating 4 mg PO Q6H PRN nausea and 04/28/24 tablet vomiting #10 tabs levofloxacin 750 mg tablet 750 mg PO DAILY 10 days #10 tabs 05/02/24 tamsulosin 0.4 mg capsule (Flomax) 0.4 mg PO DAILY #30 caps 05/02/24 gabapentin 600 mg tablet 600 mg P
--- NOTE | 2024-05-21 06:24 | PC.NURSE ---
Flushed quintero with approximately 40ml of sterile saline. Urine flowing freely at this time. Provider notified. Patient provided with urinal to empty leg bag as needed to monitor output.
[2024-05-21 06:50] VITALS: BP 117/81; PULSE 77; RESP 16; TEMP 36.7; O2SAT 95
== END 2024-05-21 06:52 | disposition home or self-care (01) ==
PROVIDERS: Emergency Provider Student in an Organized Health Care Education/Training Program; PCP Family Medicine
DX: T83.098A Other mechanical complication of other urinary catheter, initial encounter (principal); N31.9 Neuromuscular dysfunction of bladder, unspecified
CPT/HCPCS: 99283

== ENCOUNTER 2024-05-22 23:39 | Emergency (ER) | payer BC, SELFPAY ==
[2024-05-22 23:45] VITALS: BP 126/61; PULSE 94; O2SAT 96
[2024-05-22 23:46] VITALS: RESP 16; TEMP 36.7; O2SAT 97; BMI 23.7
--- NOTE | 2024-05-22 23:57 | HMH.EDGENADL ---
Discharge Plan Disposition Patient Disposition: Eloped Condition: Good Chief Complaint: Urogenital-Male Prescriptions Prescriptions: New sulfamethoxazole-trimethoprim 800-160 mg tablet 1 tab PO BID Qty: 14 0RF No Action buprenorphine-naloxone 8-2 mg tablet, sublingual 1 tab sublingual DAILY lidocaine [Lidocaine Pain Relief] 4 % adhesive patch,medicated topical polyethylene glycol 3350 17 gram/dose powder 17 g PO famotidine 20 mg tablet 20 mg PO BID Qty: 60 3RF fluoxetine 10 mg capsule 10 mg PO DAILY Qty: 30 3RF cholecalciferol (vitamin D3) 50 mcg (2,000 unit) capsule 50 mcg PO DAILY Qty: 90 3RF levofloxacin 750 mg tablet 750 mg PO DAILY 10 Days Qty: 10 0RF tamsulosin [Flomax] 0.4 mg capsule 0.4 mg PO DAILY Qty: 30 3RF methocarbamol 500 mg tablet 500 mg PO QID Qty: 120 3RF sennosides-docusate sodium [Stool Softener-Stimulant Laxat] 8.6-50 mg tablet 1 tab-cap PO DAILY 30 Days Qty: 30 0RF nitrofurantoin monohyd/m-cryst [Macrobid] 100 mg capsule 100 mg PO Q12H 10 Days Qty: 20 2RF Rx Instructions: must administer with a meal/food; start after levaquin completion gabapentin 600 mg tablet 600 mg PO TID Qty: 90 3RF ondansetron 4 mg tablet,disintegrating 4 mg PO Q6H PRN (Reason: nausea and vomiting) Qty: 10 0RF Referrals Follow up/Referrals: Dakotah Perales MD [Primary Care Provider] - See instructions Activity Restrictions/Add. Instructions Additional Instructions/Restrictions: You were evaluated in the ER and are appropriate for discharge at this time. Take the prescribed antibiotics as directed, do not skip doses, do not stop taking them early. Follow-up with urology tomorrow as scheduled, do not miss this appointment. Return to the ER with new, worsening, or otherwise concerning symptoms. Clinical Impressions Clinical Impression: Complication, blocked Quintero catheter Print Language Print Language: Mongolian Discharge ED Provider: Debi Joy Adult [facility] General Chief complaint: Urogenital-Male Stated complaint: clogged quintero bag Time Seen by Provider: 05/22/24 23:53 Mode of Arrival: Ambulatory Source of Information: Patient Limitations: No Limitations Description of Symptoms (Recalled from ER Triage Doc. by RN): Pt ambulatory to ED with cc of quintero not draining. PT states his quintero will not drain and he is having discomfort from bladder being full. Pt has an appointment with tomorrow in regards of multiple ER visits due to quintero not draining. History of Present Illness HPI narrative: 43-year-old male presents to the ER for complaints of his Quintero catheter not draining urine. Patient states this morning he was draining urine like normal but through the day today has had less and less output. He is having lower abdominal discomfort from the bladder being full but no fevers, chills, back pain, nausea, vomiting, or any other associated symptoms at this time. Patient has had multiple ER visits in the last few days for the same complaint. Quintero has not been exchanged due to patient report of extremely difficult catheter replacements which he believes is due to scar tissue. Patient reports he has an appointment with urology tomorrow. He is requesting his Quintero flushed so that he can continue urinating and go to his appointment as scheduled tomorrow. Related Data Home Medications ?Medication ?Instructions ?Recorded ?Confirmed buprenorphine 8 mg-naloxone 2 mg 1 tab sublingual DAILY 03/15/24 05/02/24 sublingual tablet lidocaine 4 % topical patch patch topical 03/15/24 05/02/24 (Lidocaine Pain Relief) polyethylene glycol 3350 17 17 g PO 03/15/24 05/02/24 gram/dose oral powder Previous Rx's ?Medication ?Instructions ?Recorded famotidine 20 mg tablet 20 mg PO BID stomach #60 tabs 03/15/24 fluoxetine 10 mg capsule 10 mg PO DAILY #30 caps 03/15/24 cholecalciferol (vitamin D3) 50 50 mcg PO DAILY #9
[2024-05-23] VITALS: BP 113/61; PULSE 78; O2SAT 96
--- NOTE | 2024-05-23 00:51 | PC.NURSE ---
Hassan has been flushed
--- NOTE | 2024-05-23 01:00 | PC.NURSE ---
bladder scanned showed 0 mL in bladder
--- NOTE | 2024-05-23 01:16 | PC.NURSE ---
consulted [facility] pharmacy and spoke with narda santana: what atb would be best.
--- NOTE | 2024-05-23 01:19 | PC.NURSE ---
Pt walked out of emergency department checked and pt is no longer on property. Dr Joy notified of pt elopement
[2024-05-23 01:21] VITALS: BP 0/0; PULSE 0; RESP 0; TEMP -17.7; TEMP 0
== END 2024-05-23 01:23 | disposition left against medical advice (07) ==
PROVIDERS: Emergency Provider Emergency Medicine; PCP Family Medicine
DX: T83.091A Other mechanical complication of indwelling urethral catheter, initial encounter (principal); N31.9 Neuromuscular dysfunction of bladder, unspecified
CPT/HCPCS: 99283

== ENCOUNTER 2024-06-09 15:50 | Emergency (ER) | payer BC, SELFPAY ==
[2024-06-09 15:53] VITALS: BP 124/73; PULSE 90; RESP 19; TEMP 36.6; O2SAT 98; BMI 19.2
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
[2024-06-09 17:28] VITALS: BP 0/0; PULSE 0; RESP 0; TEMP -17.7; TEMP 0
== END 2024-06-09 17:29 | disposition left against medical advice (07) ==
PROVIDERS: Emergency Provider Emergency Medicine; PCP Family Medicine
DX: R33.9 Retention of urine, unspecified (principal)
CPT/HCPCS: 99281

== ENCOUNTER 2024-06-15 21:58 | Emergency (ER) | payer BC, SELFPAY ==
[2024-06-15 22:04] VITALS: BP 107/61; PULSE 78; RESP 18; TEMP 36.8; O2SAT 97; BMI 23.5
--- NOTE | 2024-06-16 00:36 | PC.NURSE ---
2243 D Yneny inserted coude catheter without any difficulties. pt tolerated well. 1200ml yellow/clear urine drained.
[2024-06-16 00:51] VITALS: BP 107/61; PULSE 78; RESP 18; TEMP 36.8; O2SAT 97
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
== END 2024-06-15 23:05 | disposition home or self-care (01) ==
LOC: ER 22:03
PROVIDERS: Emergency Provider Emergency Medicine; PCP Family Medicine
DX: R33.9 Retention of urine, unspecified (principal)
CPT/HCPCS: 51702; 99283